=== PATIENT | female | born 2000 | race Caucasian/White ===

== ENCOUNTER 2020-12-30 12:33 | Emergency (ER) | payer MEDICAID ==
[~2020-12-30] VITALS: Ht 170.2 cm; Wt 64.5 kg
[2020-12-30 12:53] VITALS: BP 95/53
== END 2020-12-30 13:43 | disposition home or self-care (01) ==
LOC: ED 13:10
DX: L72.3 Sebaceous cyst (principal)
CPT/HCPCS: 99283